=== PATIENT | female | born 1995 | race African-American/Black ===

== ENCOUNTER 2019-04-15 21:47 | Emergency (ER) | payer OTHER ==
[~2019-04-15] VITALS: Ht 170.2 cm; Wt 88.0 kg
[~2019-04-15 21:47] MED LIST: AMOXICILLIN500 M1 PO; BACTRIM DS TAB1 EACH PO; COLACE100 MG PO; DASETTA1 EAC1; HYDROXYZINE HCL25 M1 PO; IBUPROFEN 200200 M1; KEFLEX500 M1 PO; PHENERGAN 25 MG25 M1 PO; PREDNISONE50 MG PO; TRAMADOL 50 MG50 MG PO; WAL-PROFEN200 M1
[2019-04-15] MEDS ORDERED: MEDROLDOSEPACK PO (22:56)
[2019-04-15] MEDS ORDERED: TESSALON PERLE100 MG PO (22:56)
[2019-04-15 23:55] VITALS: BP 114/51
== END 2019-04-15 23:55 | disposition home or self-care (01) ==
LOC: ER 21:47
DX: J20.8 Acute bronchitis due to other specified organisms (principal); Z91.018 Allergy to other foods; Z88.8 Allergy status to other drugs, medicaments and biological substances